=== PATIENT | male | born 1995 | race Caucasian/White ===

== ENCOUNTER 2021-04-06 16:27 | Emergency (ER) | payer OTHER ==
[2021-04-06 17:54] LABS: BILIRUBIN - TOTAL 1.5 mg/dL (0.2-1.0); BUN/CREAT RATIO (CALC) 12.1 RATIO; CREATININE 0.91 mg/dL (0.67-1.17); GLOBULIN (CALCULATION) 2.6 g/dL; POTASSIUM 3.6 mmol/L (3.5-5.1); TOTAL PROTEIN 7.6 g/dL (6.4-8.2)
[2021-04-06 17:57] LABS: BASOPHIL 0.2 % (0-2); EOSINOPHIL 0.7 % (0-5); HGB 16.8 g/dl (13.2-18.0); LYMPHOCYTE 36.5 % (15-48); MCV 82.9 fL (78.0-100.0); MONOCYTE 6.3 % (0-12); MPV 11.9 fL (6.0-9.5); NEUTROPHIL 56.1 % (41-80); NRBC 0; RBC 5.79 M/uL (4.70-6.00); RDW 12.1 % (11.5-14.0); WBC 4.6 K/uL (4.0-10.5)
[2021-04-06 18:15] LABS: PLT 130 K/uL (150-400)
== END 2021-04-06 20:35 | disposition home or self-care (01) ==
LOC: FER 16:27 → EDSEX 16:27 → FER 20:31
PROVIDERS: Emergency Medicine
DX: R07.89 Other chest pain (principal); Z88.0 Allergy status to penicillin
CPT/HCPCS: 36415; 80053; 84484; 85025; 85379; 93005